=== PATIENT | female | born 1990 | race Caucasian/White ===

== ENCOUNTER 2019-10-08 06:56 | Emergency (ER) | payer BC ==
[~2019-10-08] VITALS: Ht 157.5 cm; Wt 99.1 kg
--- NOTE | 2019-10-08 07:11 | NUR ---
PT AMB TO BR AND BACK TO ROOM WITH STEADY GAIT FOR UA.
--- NOTE | 2019-10-08 07:13 | NUR ---
FIRST CONTACT WITH PT. PT C/O SHARP RLQ ABD PAIN RAD TO BACK WITH NAUSEA, SEEN AT YESTERDAY, DENIES DIARR/CONST- LBM TODAY, HX C-SECT. PT'S AOX4. RESPS EVEN AND UNLABORED. BP/SPO2 MONITORS IN PLACE. CALL LIGHT WITHIN REACH. PA AT BEDSIDE TO EVALUATE.
[2019-10-08] MEDS ORDERED: ONDANSETRON 2MG/ML, 2ML ONE ×2 (07:16→09:57)
[2019-10-08] MEDS ORDERED: MORPHINE SULFATE 4 MG/ML, 1ML ONE ×2 (07:16→08:42)
[2019-10-08] MEDS: MORPHINE SULFATE 4 MG/ML, 1ML IVPush PRN ×2 (07:26→08:44)
--- NOTE | 2019-10-08 07:29 | NUR ---
PT MEDICATED PER EMAR. PT TOLERATED WELL.
[2019-10-08] MEDS ORDERED: ONDANSETRON 2MG/ML, 2ML IVPush ONE ×2 (07:30→10:00)
[2019-10-08] MEDS ORDERED: SODIUM CHLORIDE FLUSH 10ML SYR IVF ONE (07:30)
[2019-10-08 07:58] LABS: BASOPHILS # (AUTO) 0.03 x10^3/uL (0-0.1); BASOPHILS % (AUTO) 0 % (0-1); EOSINOPHILS # (AUTO) 0.18 x10^3/uL (0-0.4); EOSINOPHILS % (AUTO) 2 % (1-7); LYMPHOCYTES # (AUTO) 2.52 x10^3/uL (1-3.4); LYMPHOCYTES % (AUTO) 30 % (22-44); MD NO; MEAN CORPUSCULAR HEMOGLOBIN 29.6 pg (27.0-34.8); MEAN CORPUSCULAR HGB CONC 32.5 g/dL (32.4-35.8); MEAN PLATELET VOLUME 11.8 fL (7.4-10.4); MONOCYTES # (AUTO) 0.58 x10^3/uL (0.2-0.8); MONOCYTES % (AUTO) 7 % (2-9); NEUTROPHILS # (AUTO) 5.15 x10^3/uL (1.8-6.8); NEUTROPHILS % (AUTO) 61 % (42-75); PLATELET COUNT 205 x10^3/uL (130-400); RED CELL DISTRIBUTION WIDTH 13.9 % (9.6-15.2)
[2019-10-08 08:01] LABS: MICROSCOPIC INDICATED
[2019-10-08 08:03] LABS: ALBUMIN 3.6 g/dL (3.4-5.0); ANION GAP 5 mmol/L (5-15); CHLORIDE 111 mmol/L (98-107)
--- NOTE | 2019-10-08 08:05 | NUR ---
PT'S PAIN LEVEL IS 4/10 AT THIS TIME.
[2019-10-08 08:06] LABS: CULTURE INDICATED? YES
[2019-10-08 08:08] LABS: CREATININE 0.99 mg/dL (0.55-1.02)
--- NOTE | 2019-10-08 08:31 | NUR ---
PT IN CT NOW.
--- NOTE | 2019-10-08 08:39 | NUR ---
PT BACK TO ROOM FROM CT AT THIS TIME.
--- NOTE | 2019-10-08 08:43 | NUR ---
PT C/O SEVERE PAIN AGAIN. PA NOTIFIED. PT MEDICATED PER EMAR FOR PAIN. PT TOLERATED WELL.
[2019-10-08] MEDS ORDERED: KETOROLAC 30 MG/1 ML IVPush ONE (09:00)
--- NOTE | 2019-10-08 09:08 | NUR ---
PT'S STRAIGHT CATH'D USING STERILE TECHNIQUE. PT TOLERATED WELL. THIS RN WALKED TO LAB.
[2019-10-08] MEDS ORDERED: KETOROLAC 30 MG/1 ML ONE (09:12)
--- NOTE | 2019-10-08 09:15 | NUR ---
PT MEDICATED PER EMAR. PT TOLERATED WELL.
[2019-10-08 09:36] LABS: MICROSCOPIC AUTO
[2019-10-08 09:38] LABS: CULTURE INDICATED? NO
[2019-10-08] MEDS ORDERED: PROMETHAZINE 25 MG/ML, 1ML ONE (10:37)
[2019-10-08 10:42] VITALS: BP 118/66
--- NOTE | 2019-10-08 10:42 | NUR ---
PT MEDICATED PER EMAR. PT TOLERATED WELL.
[2019-10-08] MEDS ORDERED: PROMETHAZINE 25 MG/ML, 1ML IM PRN (11:00)
--- NOTE | 2019-10-08 12:20 | NUR ---
Patient given discharge instructions and they have confirmed that they understand the instructions. Patient ambulatory with steady gait.
== END 2019-10-08 12:21 | disposition home or self-care (01) ==
LOC: ED 08:04
DX: N20.0 Calculus of kidney (principal); R10.31 Right lower quadrant pain; E66.9 Obesity, unspecified
CPT/HCPCS: 36415; 74176; 80048; 81001; 82040; 84703; 85025; 87086; 96372; 96374; 96375; 96376; 99284; J1885; J2270; J2405; J2550